=== PATIENT | male | born 1955 | race Caucasian/White ===

== ENCOUNTER 2023-03-26 10:35 | Emergency (ER) | payer MEDICARE, OTHER ==
[2023-03-26] MEDS ORDERED: Sodium Chloride 0.9% 10 ML Syringe FLUSH PRN (10:54)
[2023-03-26] MEDS ORDERED: Sodium Chloride 0.9% 1,000 ML IV ONE (11:08)
[2023-03-26 11:23] LABS: BASOPHILS PERCENT AUTO 0.9 % (0.0-1.0); EOSINOPHILS PERCENT AUTO 1.4 % (1.0-3.0); HEMATOCRIT 37.3 % (40.0-54.0); HEMOGLOBIN 12.2 g/dL (14.0-18.0); LYMPHOCYTES PERCENT AUTO 16.3 % (20.5-50.1); MEAN CORPUSCULAR HEMOGLOBIN 32.6 pg (27.0-34.0); MEAN CORPUSCULAR HGB CONC 32.7 g/dL (33.0-35.0); MEAN CORPUSCULAR VOLUME 99.7 fL (80-100); MONOCYTES PERCENT AUTO 10.5 % (2-8); NEUTROPHILS PERCENT AUTO 70.9 % (42.2-75.2); PLATELET COUNT,PLT 349 10^3/uL (150-450); RED BLOOD CELL COUNT 3.74 10^6/uL (4.6-6.2); WHITE BLOOD CELL COUNT,WBC 5.8 10^3/uL (5.0-10.0)
[2023-03-26 11:35] LABS: APPEARANCE,URINE CLEAR (CLEAR); BILIRUBIN,URINE NEGATIVE (NEGATIVE); COLOR,URINE YELLOW (YELLOW); GLUCOSE,URINE NEGATIVE (NEGATIVE); KETONES,URINE NEGATIVE (NEGATIVE); LEUKOCYTE ESTERASE,URINE NEGATIVE (NEGATIVE); NITRITE,URINE NEGATIVE (NEGATIVE); OCCULT BLOOD,URINE NEGATIVE (NEGATIVE); PH,URINE 5.5 (5.0-9.0); PROTEIN,URINE NEGATIVE (NEGATIVE); UROBILINOGEN,URINE 0.2 mg/dL (0.2-1.0)
[2023-03-26 11:43] LABS: A/G RATIO 1.2; ALBUMIN 4.1 g/dL (3.4-5.0); ANION GAP 12.1 mEq/L (7-13); BILIRUBIN TOTAL 0.6 mg/dL (0.2-1.0); C-REACTIVE PROTEIN 0.5 mg/dL (0.0-0.9); CALCIUM 9.5 mg/dL (8.5-10.1); CREATININE 1.06 mg/dL (0.70-1.30); EST CRCL DRUG DOSING (CG) 60.19 mL/min; MAGNESIUM 1.6 mg/dL (1.8-2.4); POTASSIUM,K 4.1 mmol/L (3.5-5.1); PROTEIN TOTAL,TP 7.6 g/dL (6.4-8.2)
[2023-03-26] MEDS ORDERED: Ondansetron 4 MG/2 ML SDV IVPUSH ONE (11:55)
[2023-03-26] MEDS ORDERED: Dicyclomine 10 MG Cap PO ONE (11:56)
[2023-03-26] MEDS ORDERED: Ketorolac 30 MG/ML SDV IVPUSH ONE (12:00)
== END 2023-03-26 12:36 | disposition home or self-care (01) ==
LOC: DL.ED 10:35
DX: K52.9 Noninfective gastroenteritis and colitis, unspecified (principal); I10 Essential (primary) hypertension; E78.5 Hyperlipidemia, unspecified; Z87.891 Personal history of nicotine dependence
CPT/HCPCS: 36415; 80053; 81003; 82150; 82272; 83605; 83690; 83735; 85025; 86140; 87040; 96361; 96374; 96375; 99284; A9270; J1885; J2405; J7030; 99283; J3490